=== PATIENT | male | born 1955 | race Caucasian/White ===

== ENCOUNTER 2017-08-03 16:52 | Emergency (ER) | payer BC ==
--- NOTE | 2017-08-03 18:17 | UC ---
Throat Pain/Nasal Manuel HPI - HPI Summary HPI Summary: 62 year old male presents with complains of sinus congestion, fever, chills and body aches. - History of Current Complaint Stated Complaint: COUGH,SORE THROAT Time Seen by Provider: 08/03/17 18:16 Hx Obtained From: Patient Onset/Duration: Sudden Onset Severity: Moderate - Allergies/Home Medications Allergies/Adverse Reactions: Allergies Allergy/AdvReac Type Severity Reaction Status Date / Time No Known Allergies Allergy Verified 08/03/17 18:21 PMH/Surg Hx/FS Hx/Imm Hx Previously Healthy: Yes - Surgical History Surgical History: Yes Surgery Procedure, Year, and Place: TOENAIL REMOVED - Family History Known Family History: Negative: Renal Disease, Respiratory Disease, Blood Disorder - Social History Alcohol Use: None Substance Use Type: None Smoking Status (MU): Never Smoked Tobacco Review of Systems Constitutional: Fever, Chills Skin: Negative Eyes: Negative ENT: Sore Throat, Nasal Discharge, Sinus Congestion, Sinus Pain/Tenderness Respiratory: Cough Cardiovascular: Negative Gastrointestinal: Negative Genitourinary: Negative Motor: Negative Neurovascular: Negative Musculoskeletal: Negative Neurological: Negative Psychological: Negative All Other Systems Reviewed And Are Negative: Yes Physical Exam Triage Information Reviewed: Yes Vital Signs Reviewed: Yes Eye Exam: Normal ENT Exam: Normal Dental Exam: Normal Neck exam: Normal Neck: Positive: 1 Respiratory: Positive: Rhonchi, Wheezing Cardiovascular Exam: Normal Abdominal Exam: Normal Musculoskeletal Exam: Normal Neurological Exam: Normal Psychological Exam: Normal Skin Exam: Normal Throat Pain/Nasal Course/Dx - Differential Dx/Diagnosis Provider Diagnoses: cough. fever. chills. sinus congestion Discharge - Discharge Plan Condition: Stable Disposition: HOME Prescriptions: Amoxicillin/Clavulanate TAB* [Augmentin TAB 875*] 875 mg PO BID #20 tab Guaifenesin-Codeine [Cheratussin AC] 1 teasp PO Q8H PRN #120 syp MDD 15 ml PRN Reason: Cough LoraTADine TAB(NF) [Claritin 10 MG TAB(NF)] 10 mg PO DAILY #30 tab Methylprednisolone [Medrol Dosepak 4 MG*] 4 mg PO .SEE ERIN INSTRUCTION #21 tab Patient Education Materials: Sinusitis (ED) Referrals: Giovanny Dueñas MD [Medical Doctor] -
[2017-08-03 18:24] VITALS: BP 160/81
== END 2017-08-03 18:49 | disposition home or self-care (01) ==
LOC: UCCORT 16:52
DX: R05 Cough (principal); R50.9 Fever, unspecified; R09.81 Nasal congestion
CPT/HCPCS: 87651; 99212; G0463